=== PATIENT | female | born 1960 | race Hispanic/Latino ===

== ENCOUNTER → 2017-08-24 | Outpatient (CLI) | payer OTHER ==
--- NOTE | 2017-08-28 10:08 | Diagnostic Imaging Report ---
#[id number] - MGSCRBIL #BILATERAL DIGITAL SCREENING MAMMOGRAM WITH CAD: 08/24/2017 CLINICAL: Routine screening. No prior exams were available for comparison. Current study contains 4 films. There are scattered fibroglandular elements in both breasts. Current study was also evaluated with a Computer Aided Detection (CAD) system. There is a nodule in the left breast posterior depth only medial region seen on the craniocaudal view only. There also is a nodule in the left breast anterior depth superior region seen on the mediolateral oblique view only. Scattered benign appearing calcifications are present. A mole marker on the right is noted. No other significant masses, calcifications, or other findings are seen in either breast. IMPRESSION: INCOMPLETE: NEEDS ADDITIONAL IMAGING EVALUATION The nodule in the left breast posterior depth medial region seen on the craniocaudal view only likely is a lymph node but is indeterminate. Additional views with possible ultrasound are recommended. The nodule in the left breast anterior depth superior region seen on the mediolateral oblique view only likely is a lymph node but is indeterminate. Additional views with possible ultrasound are recommended. The patient is stated to have prior mammograms at [facility]. If those become available to compare with then additional studies may not be necessary. The patient will be contacted by the Mammography Department to schedule this appointment. Seven Oscar Jr., D.O. cw/:08/27/2017 11:45:[address] Sql Developer: Jina OROZCO)(Baudilio), [facility] letter sent: Additional Imaging Needed Mammogram BI-RADS: 0 Indeterminate
== END ==
LOC: MAMMO 11:35
PROVIDERS: ATTEND Internal Medicine
DX: Z12.31 Encounter for screening mammogram for malignant neoplasm of breast (principal)
CPT/HCPCS: 77067

== ENCOUNTER → 2017-09-12 | Outpatient (CLI) | payer OTHER ==
--- NOTE | 2017-09-12 18:07 | Diagnostic Imaging Report ---
#[id number] - USBRELIMLT ULTRASOUND OF THE LEFT BREAST : 09/12/2017 Comparison is made to exams dated: 09/12/2017 mammogram and 08/24/2017 mammogram - [facility]. Color flow and real-time ultrasound were performed on the left breast with scanning from 4 o'clock to 11 o'clock. At the 8 o'clock position 4 cm from the nipple there is a hypoechoic benign appearing nodule with a feeding vessel c/w a benign lymph node. IMPRESSION: BENIGN There is no sonographic evidence of malignancy. A 1 year screening mammogram is recommended. Seven Oscar Jr., D.O. cw/:09/12/2017 13:48:38 Car Servicer: ISAIAH JASSO, [facility] letter sent: Normal Exam Ultrasound BI-RADS: 2 Benign
--- NOTE | 2017-09-12 18:07 | Diagnostic Imaging Report ---
#[id number] - MGDXLT #UNILATERAL LEFT DIGITAL DIAGNOSTIC MAMMOGRAM: 09/12/2017 Comparison is made to exam dated: 08/24/2017 mammogram - [facility]. Current study contains 5 films. There are scattered fibroglandular elements in the left breast. There is a mass in the left breast posterior depth medial region seen best on the craniocaudal and partially visulized on the LLM view. This is likely a lymph node. Asymmetric density in the anterior aspect of the left breast behind the nipple presses out and therefore represents overlapping breast tissue. No other significant masses or calcifications are seen in the breast. IMPRESSION: INCOMPLETE: NEEDS ADDITIONAL IMAGING EVALUATION The mass in the left breast most likely is a lymph node but is indeterminate. An ultrasound is recommended. The ultrasound will be performed today. Seven Oscar Jr., D.O. cw/:09/12/2017 13:44:50 Senior Counsel Commercial: Jina JASSO(Moon)(M), [facility] letter sent: Additional Imaging Needed Mammogram BI-RADS: 0 Indeterminate
== END ==
LOC: MAMMO 11:18
PROVIDERS: ATTEND Internal Medicine
DX: N63.20 Unspecified lump in the left breast, unspecified quadrant (principal)